=== PATIENT | male | born 1950 | race Caucasian/White ===

== ENCOUNTER 2019-04-20 11:30 | Outpatient (REF) | payer MEDICARE, OTHER, SELFPAY ==
[2019-04-20 12:12] LABS: INR 6.92 (0.8-1.2)
== END 2019-04-20 11:31 | disposition home or self-care (01) ==
LOC: LAB 11:30
PROVIDERS: Family Provider Family Medicine; PCP Family Medicine; Visit Provider Family Medicine
DX: Z01.89 Encounter for other specified special examinations (principal)
CPT/HCPCS: 85610

== ENCOUNTER 2019-05-19 09:45 | Outpatient (CLI) | payer MEDICARE, OTHER, SELFPAY ==
--- NOTE | 2019-05-19 09:58 | CT_ITS ---
WS: [id number] CT HEAD WITH AND WITHOUT CONTRAST HISTORY: THALAMIC CHANGES WITH HEMORRHAGIC CHANGE TECHNIQUE: Noncontrast 2.5 mm axial images obtained from the vertex to the skull base. Additional xander ging performed at 2.5 mm axial images status post IV contrast. Bone and soft tissue windows are revie wed. All CT scans at [facility] use at least one of these dose optimization techniques: a utomated exposure control; mA and/or kV adjustment per patient size (includes targeted exams where do se is matched to clinical indication); or iterative reconstruction. CONTRAST: Omnipaque 300; 95 mL IV. DLP: 1984.08 mGycm COMPARISON: Noncontrast CT head 09/29/2010. No acute intracranial hemorrhage, edema or midline shift. Increasing areas of decreased attenuation i n the RIGHT frontal lobe. Moderate size prior infarct involving the RIGHT external capsule and insula r ribbon. There is volume loss in the insular ribbon with increasing edema or post ischemic changes e xtending into the temporal and frontal lobe. No thalamic hemorrhage or infarct. There is additional d ecreased attenuation in the LEFT basal ganglia from prior ischemic changes. No enhancing mass or vascular malformations identified. Dural venous sinuses are normally enhancing. Tortuous distal vertebral arteries. Moderate atherosclerosis of the distal, intracranial carotid jessica maico. More heavy plaque through the cavernous sinuses and supraclinoid. No enhancing mass. Paranasal sinuses as visualized: Clear. Mastoid air cells: Clear. Calvarium and scalp: Intact. CT/CT head wo/w con [id number] IMPRESSION: 1. No acute intracranial hemorrhage. 2. 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 3. No thalamic hemorrhage or infarct. 4. No enhancing mass. 5. Moderate chronic microvascular ischemic changes.
[2019-05-19 10:30] LABS: Blood Urea Nitrogen 11 mg/dL (8-23); Glomerular Filtration Rate 83.4 mL/min (90-130)
[2019-05-19] MEDS: iohexol 300 mg/mL 100 mL Btl IV (10:42)
== END 2019-05-19 09:46 | disposition home or self-care (01) ==
LOC: RADWPI 09:52
PROVIDERS: Family Provider Family Medicine; PCP Family Medicine; Visit Provider Family Medicine
DX: I63.9 Cerebral infarction, unspecified (principal); I67.82 Cerebral ischemia
CPT/HCPCS: 70470; 82565; 84520; Q9967

== ENCOUNTER → 2019-05-24 09:24 | Outpatient (BNVA) | payer MEDICARE, OTHER, SELFPAY | PROVIDERS: Family Provider Family Medicine; PCP Family Medicine; Referring Provider Family Medicine; Visit Provider Specialist | DX: Z86.73 Personal history of transient ischemic attack (TIA), and cerebral infarction without residual deficits (principal); E11.9 Type 2 diabetes mellitus without complications; Z87.891 Personal history of nicotine dependence | CPT/HCPCS: 99205; 99215 ==

== ENCOUNTER 2019-06-01 09:46 | Outpatient (CLI) | payer MEDICARE, OTHER, SELFPAY ==
--- NOTE | 2019-06-01 09:55 | MR_ITS ---
WS: [id number] MRI BRAIN WITHOUT CONTRAST HISTORY: CVA COMPARISON: 03/13/[address] head 05/19/2019 TECHNIQUE: Diffusion imaging, multiplanar T1, T2 and FLAIR imaging obtained. No evidence for acute infarct. On the susceptibility imaging there are several bilateral areas of hem osiderin deposition consistent with prior hemorrhage. Most significant involving the RIGHT caudate he ad and adjacent to the LEFT lateral ventricle. There is extensive white matter encephalomalacia and increased signal predominantly involving the RIG HT frontal lobe, periventricular white matter and RIGHT temporal lobe. White matter edema does not ap pear to significantly progressed since 03/13/2019. Ventricles and extra-axial spaces are normal. No inferior displacement of cerebellar tonsils. The sella turcica and pituitary gland are unremarkabl e. Posterior fossa is also unremarkable. Dural venous sinuses and [place] demonstrate no abnormality on this unenhanced studies. Paranasal sinuses: Clear. Mastoid air cells: Normal. Calvarium and scalp: Intact. MR/MR head wo con* [id number] IMPRESSION: 1. No acute infarct. 2. Scattered hemosiderin from prior microhemorrhages as described above, uncha nged. No acute hemorrhage. 3. Large area of encephalomalacia with edema in the RIGHT frontotemporal regio n. Enhancing lesions were described on a prior MRI in the RIGHT caudate head an d putamen. This study was done without contrast therefore enhancement or progre ssion or improvement cannot be confirmed. The extent of vasogenic edema has not significantly changed.
== END 2019-06-01 09:47 | disposition home or self-care (01) ==
LOC: RADWPI 09:50
PROVIDERS: Family Provider Family Medicine; PCP Family Medicine; Visit Provider Specialist
DX: I63.9 Cerebral infarction, unspecified (principal); G93.89 Other specified disorders of brain
CPT/HCPCS: 70551

== ENCOUNTER 2019-06-03 06:00 | Outpatient (RCR) | payer MEDICARE, OTHER, SELFPAY | END 2019-06-08 23:59 | disposition home or self-care (01) | LOC: TPO 06:00 | PROVIDERS: Family Provider Family Medicine; PCP Family Medicine; Referring Provider Specialist; Visit Provider Specialist | DX: I63.9 Cerebral infarction, unspecified (principal); R29.898 Other symptoms and signs involving the musculoskeletal system | CPT/HCPCS: 97110; 97163; 97166; 97530 ==

== ENCOUNTER 2019-06-09 06:00 | Outpatient (RCR) | payer MEDICARE, OTHER, SELFPAY | END 2019-07-08 23:59 | disposition home or self-care (01) | LOC: TPO 06:00 | PROVIDERS: Family Provider Family Medicine; PCP Family Medicine; Referring Provider Specialist; Visit Provider Specialist | DX: I63.9 Cerebral infarction, unspecified (principal); R29.898 Other symptoms and signs involving the musculoskeletal system | CPT/HCPCS: 97110; 97112; 97530 ==

== ENCOUNTER → 2019-07-08 13:16 | Outpatient (BNVA) | payer MEDICARE, OTHER, SELFPAY | PROVIDERS: Family Provider Family Medicine; PCP Family Medicine; Visit Provider Family Medicine | DX: I48.91 Unspecified atrial fibrillation (principal) | CPT/HCPCS: 85610 ==

== ENCOUNTER 2019-07-09 06:00 | Outpatient (RCR) | payer MEDICARE, OTHER, SELFPAY | END 2019-08-08 23:59 | disposition home or self-care (01) | LOC: TPO 06:00 | PROVIDERS: Family Provider Family Medicine; PCP Family Medicine; Referring Provider Specialist; Visit Provider Specialist | DX: R29.898 Other symptoms and signs involving the musculoskeletal system (principal); I63.9 Cerebral infarction, unspecified | CPT/HCPCS: 97110; 97112; 97530 ==

== ENCOUNTER → 2019-07-13 12:21 | Outpatient (BNVA) | payer MEDICARE, OTHER, SELFPAY | PROVIDERS: Family Provider Family Medicine; PCP Family Medicine; Visit Provider Family Medicine | DX: Z95.2 Presence of prosthetic heart valve (principal) | CPT/HCPCS: 85610 ==

== ENCOUNTER → 2019-07-20 16:59 | Outpatient (BNVA) | payer MEDICARE, OTHER, SELFPAY | PROVIDERS: Family Provider Family Medicine; PCP Family Medicine; Visit Provider Family Medicine | DX: I48.91 Unspecified atrial fibrillation (principal) | CPT/HCPCS: 85610 ==

== ENCOUNTER 2019-08-09 06:00 | Outpatient (RCR) | payer MEDICARE, OTHER, SELFPAY | END 2019-09-07 23:59 | disposition home or self-care (01) | LOC: TPO 06:00 | PROVIDERS: Family Provider Family Medicine; PCP Family Medicine; Referring Provider Specialist; Visit Provider Specialist | DX: R29.898 Other symptoms and signs involving the musculoskeletal system (principal) | CPT/HCPCS: 97110; 97112; 97166; 97530; 97535 ==

== ENCOUNTER → 2019-08-19 10:45 | Outpatient (BNVA) | payer MEDICARE, OTHER, SELFPAY | PROVIDERS: Family Provider Family Medicine; PCP Family Medicine; Visit Provider Family Medicine | DX: I48.91 Unspecified atrial fibrillation (principal) | CPT/HCPCS: 85610 ==

== ENCOUNTER 2019-08-23 10:26 | Outpatient (CLI) | payer MEDICARE, OTHER, SELFPAY ==
--- NOTE | 2019-08-23 10:35 | CT_ITS ---
WS: [id number] CTA OF THE CHEST WITH PULMONARY EMBOLISM PROTOCOL TECHNIQUE: High-resolution contrast enhanced CTA of the chest with coronal and sagittal reformatted i mages with pulmonary embolism protocol. MIP images are also reviewed. CLINICAL INFORMATION: HEMOPTYSIS COMPARISON: July 06, 2014 DLP: 801.[address] scans at [facility] use at least one of these dose optimization techniques: automat ed exposure control; mA and/or kV adjustment per patient size (includes targeted exams where dose is matched to clinical indication); or iterative reconstruction. FINDINGS: Proximal main pulmonary arteries are normal. Segmental and subsegmental pulmonary arteries are normal . No filling defects to indicate pulmonary embolus. No evidence of pulmonary embolus. Normal caliber thoracic aorta. Aortic calcification. Prior aortic valve replacement. Sternotomy and c oronary bypass grafting. Dense aortic calcification the upper abdominal aorta. Advanced chronic emphysema. Interstitial thickening/infiltrates in the left upper lobe and lingula. S light interstitial thickening in the lower lobes bilaterally. Recommend correlation for pneumonitis. This is new since 2014. Trace left pleural fluid.Subsegmental atelectasis in the lung bases. No mediastinal or hilar lymphadenopathy. No axillary or subcarinal lymphadenopathy. Small esophageal hiatal hernia. Adrenal glands are normal. Splenic granulomas. Chronic bilateral rib fractures with ca llus formation. CT/CT angio chest PE protcl [id number] IMPRESSION: 1. No evidence for pulmonary embolism. 2. Normal caliber thoracic aorta. Prior coronary artery bypass grafting. Aorti c valve replacement. 3. Advanced chronic emphysematous changes is stable. 4. Mild interstitial thickening/infiltrates in the left upper lobe and lingula and both lower lobes posteriorly. Recommend correlation for pneumonitis. No fo miladis pneumonia. 5. Trace left pleural fluid. Slight atelectasis in the lung bases.
[2019-08-23 10:56] LABS: Blood Urea Nitrogen 10 mg/dL (8-23); Glomerular Filtration Rate 73.9 mL/min (90-130)
[2019-08-23] MEDS: iohexol 350 mg/mL 100 mL Btl IV (11:09)
== END 2019-08-23 10:27 | disposition home or self-care (01) ==
LOC: RADWPI 10:27
PROVIDERS: PCP Family Medicine; Visit Provider Family Medicine
DX: R04.2 Hemoptysis (principal); Z95.1 Presence of aortocoronary bypass graft; Z95.2 Presence of prosthetic heart valve; J98.11 Atelectasis
CPT/HCPCS: 71275; 82565; 84520; Q9967

== ENCOUNTER → 2019-08-25 10:41 | Outpatient (BNVA) | payer MEDICARE, OTHER, SELFPAY | PROVIDERS: PCP Family Medicine; Visit Provider Specialist | DX: I63.9 Cerebral infarction, unspecified (principal); I61.8 Other nontraumatic intracerebral hemorrhage; I10 Essential (primary) hypertension | CPT/HCPCS: 99213; 99214 ==

== ENCOUNTER → 2019-09-06 10:18 | Outpatient (BNVA) | payer MEDICARE, OTHER, SELFPAY | PROVIDERS: PCP Family Medicine; Visit Provider Family Medicine | DX: Z95.2 Presence of prosthetic heart valve (principal) | CPT/HCPCS: 85610 ==

== ENCOUNTER 2019-09-08 06:00 | Outpatient (RCR) | payer MEDICARE, OTHER, SELFPAY | END 2019-10-08 23:59 | disposition home or self-care (01) | LOC: TPO 06:00 | PROVIDERS: PCP Family Medicine; Referring Provider Specialist; Visit Provider Specialist | DX: R29.898 Other symptoms and signs involving the musculoskeletal system (principal) | CPT/HCPCS: 97110; 97112; 97530 ==

== ENCOUNTER 2019-09-20 11:23 | Outpatient (CLI) | payer MEDICARE, OTHER, SELFPAY ==
--- NOTE | 2019-09-20 11:45 | MR_ITS ---
WS: [id number] MRI CERVICAL SPINE NONCONTRAST TECHNIQUE: Sagittal T1, T2 and STIR imaging. Axial T2, gradient, and fiesta imaging. CLINICAL INFORMATION: R29.898 Other symptoms and signs involving the musculoske... COMPARISON: None. FINDINGS: Normal cervical alignment. Slight exaggeration of the normal cervical lordosis. Some images degraded by patient motion. Mild disc osteophyte complexes at C5-C6 and C6-C7. Edema in the left C3-C4 facets likely degenerative change of synovitis. C2-C3: Mild left and no significant right foraminal narrowing. Spinal canal is patent. C3-C4: Mild disc osteophyte complex with endplate ridging. Moderate left and mild right foraminal ronak rowing. Moderate facet arthropathy. Spinal canal is patent. C4-C5: Mild disc bulging with endplate ridging. Tiny central protrusion. Advanced left facet arthropa thy. Moderate to severe left and moderate right bony foraminal narrowing. C5-C6: Central and right pericentral disc osteophyte complex with slight contact of the right ventral cervical cord. Moderate bilateral bony foraminal narrowing. Moderate facet arthropathy. C6-C7: Disc osteophyte complex with endplate ridging. Severe left and no significant right foraminal narrowing. Spinal canal is patent. Mild facet arthropathy. C7-T1: Tiny central disc protrusion. Spinal canal and foramen are patent. Visualized upper thoracic cord is normal MR/MR cervical spin wo con* [id number] IMPRESSION: 1. Normal cervical alignment. Slight exaggeration normal cervical lordosis. 2. Small disc osteophyte complexes at C5-C6 and C6-C7 with mild central canal stenosis. Right pericentral disc osteophyte protrusion C5-C6 and tiny central d isc osteophyte protrusion C6-C7. 3. Multilevel bony foraminal narrowing worse at right C5-C6 and left C6-C7 mod erate to severe. 4. Edema in the left C3-4 facets likely due to degenerative change or synoviti s.
== END 2019-09-20 11:24 | disposition home or self-care (01) ==
LOC: RADSHAW 11:26
PROVIDERS: PCP Family Medicine; Visit Provider Specialist
DX: R29.898 Other symptoms and signs involving the musculoskeletal system (principal); M25.78 Osteophyte, vertebrae; M48.02 Spinal stenosis, cervical region
CPT/HCPCS: 72141

== ENCOUNTER → 2019-09-30 11:46 | Outpatient (BNVA) | payer MEDICARE, OTHER, SELFPAY | PROVIDERS: PCP Family Medicine; Visit Provider Family Medicine | DX: Z95.2 Presence of prosthetic heart valve (principal) | CPT/HCPCS: 85610 ==

== ENCOUNTER 2019-10-09 06:00 | Outpatient (RCR) | payer MEDICARE, OTHER, SELFPAY | END 2019-11-08 23:59 | disposition home or self-care (01) | LOC: TPO 06:00 | PROVIDERS: PCP Family Medicine; Referring Provider Specialist; Visit Provider Specialist | DX: R29.898 Other symptoms and signs involving the musculoskeletal system (principal) | CPT/HCPCS: 97110; 97112; 97530 ==